=== PATIENT | male | born 1945 | race Caucasian/White ===

== ENCOUNTER 2017-10-07 19:51 | Emergency (ER) | payer MEDICARE, OTHER ==
[~2017-10-07] VITALS: Ht 185.4 cm; Wt 83.9 kg
[~2017-10-07 19:51] MED LIST: ASACOL HD800 M1 PO; ASPIR 8181 MG PO; CIPRO 500MG TA500 MG PO; KEPPRA 500 MG500 MG PO; LISINOPRIL 10MG10 MG PO; NAPROSYN250 M1 PO; NOMEDS XX; NORCO 325 MG-51 TAB PO; OMEPRAZOLE20 MG PO; OXAZEPAM 15MG C15 M1 PO; OXAZEPAM 15MG C15 MG PO; PHILLIPS' COLO1 EACH PO; PRAVASTATIN SOD10 MG PO; URSODIOL300 MG PO; VALIUM5 MG PO; ZYRTEC10 M2 PO
--- NOTE | 2017-10-07 20:11 | Emergency Room Report ---
See Addendum History of Present Illness Time Seen by 2009 Presenting Problem in Triage Pt arrived:Walked Presenting Problem:LEFT ARM NUMBNESS, HEART POUNDING Onset of symptoms date/time:10/07/17 or onset unknown for: Treatment Prior to Arrival: CLAIM ADMINISTRATOR Provided by: Sepsis Risk Assessment: Temp: 98.1 B/P: 147/83 MAP: 104 Pulse: 62 Resp: 18 Recent fever? N Clinical Suspician of Infection? N Mental Status: 1 - Regular (Normal Baseline) Sepsis Risk:Low Sepsis Risk Have you (or family members/close friends) recently traveled outside the [place]? N If Yes, where/when: Have you had exposure to infectious disease within the past month? N TB? Other? Specify: Source patient, RN notes reviewed, family, old records Exam Limitations no limitations Comment wm who has occ lt sided chest pain but none at this time with no def palpataion and no syncope- he also has occ lt upper ext tingling but no speech or focal neuro sx- no trauma or fever Cardiac Chest Pain Chest pain indicative of cardiac No Timing/Duration this evening Severity moderate ALLERGIES Coded Allergies: infliximab (From [facility]) (07/05/16) Home Medications Active Scripts LISINOPRIL (Lisinopril) 10 MG PO DAILY #30 TAB Ref 2 Prov: 09/14/13 Reported Medications CETIRIZINE HCL (Zyrtec) 10 MG PO DAILY Mesalamine (ASACOL HD 800MG (generic)) 800 MG PO DAILY URSODIOL (Ursodiol) 300 MG PO DAILY Omeprazole (Omeprazole 20MG) 20 MG PO DAILY Levothyroxine Sodium (Levothyroxine) 112 MCG NG DAILY History Medical History General CAD? No Angina: No SD: No Hypertension? Yes Hyperlipidemia? No CHF? No DVT? Yes PE? No COPD? No Asthma? No Anemia? No GERD? Yes Gastric ulcers? No GI Bleed? No Hernia? No Thyroid Problems? No Hypothyroidism? No CVA? Yes Seizures? Yes Diabetes? No Renal Insuffiency? No End Stage Renal Disease? No UTI? No Stones? No BPH? No GB Disease: No Nephritic Syndrome? No Asplenia? No Hepatitis? No Sickle Cell Disease? No Arthritis? No Migraines? No Cataracts? No Glaucoma? No MRSA? No HIV? No TB? No Anxiety? No Depression? No Cancer? No More? Yes Additional hx: CROHNS Immunization Hx DT/Tetanus Unknown Flu Refused Pneumonia Refuses Surgical Hx Previous Surgery?Y BACK SURG. ENDOSCOPY ERCP TONSILLECTOMY RIGHT ARM SURGERY THYROIDECTOMY Family History Family Hx Diabetes No CAD No Hypertension No Hyperlipidemia No Cancer No TB No Social History Smoking Hx Smoker: Former Smoker Tobacco: No Type Cigarettes Alcohol Alcohol: Yes Drugs none Review of Systems All Other Systems Reviewed and Negative Constitutional denies fever Eyes denies drainage ENT denies: ear pain, epistaxis, throat pain. Respiratory denies cough, denies shortness of breath, denies wheezing Cardiovascular denies syncope Gastrointestinal denies diarrhea, denies vomiting Genitourinary denies: dysuria, frequency, hesitancy, hematuria. Musculoskeletal denies back pain, denies joint pain, denies joint swelling, denies neck pain Skin denies rash Psychiatric/Neurological see HPI, denies headache, denies seizure, tingling Physical Exam Vital Signs Vital Signs Date Time Temp Pulse Resp B/P Pulse O2 O2 Flow FiO2 Ox Delivery Rate 10/07 2041 98.3 60 20 133/79 98 10/07 1956 98.1 62 18 147/83 98 - WBC >12,000 or <4,000 or 10% bands? 2 or more SIRS Criteria Met? B/P:133/79 MAP:104 Creatinine >2.0? UA output<0.5ml/kg/hr for 2 hrs? Platelet count >100,000? Lactate >2.0mmol/1? INR >1.2 or PTT > than 60 sec? Evidence of Organ Dysfunction? Provider documented clinical suspician of infection? N Sepsis Criteria Count: 0 Sepsis Risk: Low Sepsis Risk General Appearance no apparent distress Eye Exam - bilateral eye PERRL, bilateral eye EOMI Ear, Nose, Throat normal ENT inspection Neck supple, no def bruit Respiratory Status No: respiratory distress. Lung Sounds bilateral: lungs clear. Cardiovascular regular rate/rhythm, systolic murmur Peripheral Pulses Pulses normal Yes Gastrointestinal soft Extremities normal inspection, no calf tenderness Strength 4 Upper Ext (L), 4 Upper Ext (R), 4 Lower Ext (L), 4 Lower Ext (R) Neurologic alert, traffic controller cable II-XII nml as tested, no motor/sensory deficits Glascow Coma Scale Glascow Coma Scale Response Value EYE response: 4 Spontaneously 4 MOTOR response: 6 OBEYS 6 VERBAL response: 5 Oriented & Converses 5 Total 15 Reflexes Reflexes normal No Mental status normal mood/affect Skin intact Medical Decision Making LABS/Meds/Orders Pt receiving controlled substance in ED? No Results/Orders Laboratory Tests 10/07/172019: Sodium 135 L, Potassium 3.4 L, Chloride 100, Carbon Dioxide 27, BUN 12, Creatinine 0.9, Estimated Creat Clear 91, Estimated GFR (MDRD) 83, Glucose 106, Calcium 8.2 L, Total Bilirubin 0.3, AST 29, ALT 22, Alkaline Phosphatase 167 H , Creatine Kinase 119, CK-MB (CK-2) Rel Index 1.1, CK and CKMB Interp 1.3, Troponin I < 0.02, Total Protein 7.3, Albumin 3.2 L, Globulin 4.1 H, Albumin/ Globulin Ratio 0.8 L, WBC 4.2 L, RBC 4.08 L, Hgb 10.1 L, Hct 36.1 L, MCV 88.5, RDW 14.9, Plt Count 269, MPV 7.7, Gran % 62.8, Gran # 2.6, Lymphocytes % 24.2, Monocytes % 6.9, Eosinophils % 2.5, Basophils % 0.7, Lymphocytes # 1.0, Monocytes # 0.3, Eosinophils # 0.1, Basophils # 0.0, PUBS MCHC 27.7 L, MCH 24.5 L, Alcohols 124 H Current Medication Orders Sig/Jasmyn Start time Last Medication Dose Route Stop Time Status Admin Sodium Chloride 10 ML PRN PRN 10/07 2015 AC IV 10/08 2012 Sodium Chloride 10 ML PRN PRN 10/07 2015 AC IV 10/08 2012 Orders Procedure Date/time Status DIET-NOTHING BY MOUTH 10/[address] HEAD W/O CONTRAST 10/[address] SCAN REQ 10/07 2013 Complete IV SALINE LOCK 10/07 2013 Active URINALYSIS/COMPLETE 10/07 2013 Active DRUG ABUSE SCREEN (TRIAGE) 10/07 2013 Active COMPLETE METABOLIC PANEL 10/07 2013 Complete CBC WITH AUTO DIFF 10/07 2013 Complete CARDIAC ENZYMES 10/07 2013 Complete ALCOHOL 10/07 2013 Complete XRAY/CT/US XRAY/CT/US CT head CT interpretation by discussed w/radiologist Time results known: 2130 CT Results abnormal (see report) Departure Departure Time of Disposition 2126 Disposition DC Home or Self Care(routine) Clinical Impression Primary Impression: Tingling of left upper extremity Secondary Impressions: Alcohol intoxication Qualifiers: Complication of substance-induced condition: uncomplicated Qualified Code: F10.920 - Alcohol use, unspecified with intoxication, uncomplicated Condition STABLE Referrals [facility] (Family) Patient Instructions DI for Numbness/tingling Additional Instructions please call your dr at [facility] in am for follow up Discharge Counseling Counseled pt/family regarding diagnosis, test results, medications/RX, follow up needs ED Critical Care Critical Care No at 2132
--- OUTSIDE RECORDS SUMMARY | 2017-10-07 20:21 | External Medical Summary Rpt | CCD ---
Author Author [employer] Organization [employer] Address Unknown Phone Unavailable Purpose Continuity of Care Document - through 2016
--- OUTSIDE RECORDS SUMMARY | 2017-10-07 20:21 | External Medical Summary Rpt | CCD ---
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 [facility] n 434.91 Ischemic [place] stroke [facility] [id number] Alcohol [place] dependence [facility] [id number] Alcohol [place] withdrawal [facility] Allergies, Adverse Reactions, Alerts Type Drug Allergy Adverse Reaction to Substance Substance Reaction Severity Infliximab I-HIVES Intermediate Medications Na ND Rx Da Fi Fi Am Da Di Ph RX Ph St me C No te ll ll ou ys ag ar # ys at rm s nt no ma ic us Or Da si cy ia de te s n re d CL 00 12 0 No ON 90 -1 ID 45 1- Lo IN 65 20 ng E 66 13 er HC 1 L Ac 0. ti 1 ve MG TA BL ET Sa 63 12 1 No li 80 -1 ne 70 0- Lo 10 20 ng Fl 07 13 er us 5 h Ac 10 ti ML ve Sy ri ng e OX 00 11 0 No AZ 22 -0 EP 82 6- Lo AM 06 20 ng 91 13 er 15 0 Ac MG ti ve CA PS UL E Lo 63 11 1 No ra 73 -0 ze 90 5- Lo pa 15 20 ng m 51 13 er 1M 0 G Ac Ta ti bl ve et OX 00 11 1 No AZ 22 -0 EP 82 5- Lo AM 06 20 ng 91 13 er 15 0 Ac MG ti ve CA PS UL E Li 00 11 2 No si 17 -0 no 23 4- Lo pr 75 20 ng il 91 13 er 0 10 Ac MG ti ve Ta bl et Po 00 11 2 No ta 24 -0 ss 50 4- Lo iu 05 20 ng m 80 13 er Ch 1 lo Ac ri ti de ve 20 ME Q Ta bl e Lo 63 11 0 No ra 73 -0 ze 90 4- Lo pa 15 20 ng m 51 13 er 1M 0 G Ac Ta ti bl ve et LO 00 11 2 No VE 07 -0 NO 50 4- Lo X 62 20 ng 40 04 13 er 1 MG Ac /0 ti .4 ve ML SY RI NG E VA 00 11 0 No NC 40 -0 OM 96 3- Lo YC 53 20 ng IN 30 13 er 1 1 Ac GM ti ve AL SO 00 11 0 No DI 40 -0 UM 97 3- Lo 98 20 ng CH 30 13 er LO 2 RI Ac DE ti ve 0. 9% SO ALVINO TI ON LE 25 11 1 No VO 02 -0 FL 10 3- Lo OX 13 20 ng AC 28 13 er IN 3 Ac 75 ti 0 ve MG /1 50 ML -D 5W Lo 63 11 1 No ra 73 -0 ze 90 3- Lo pa 15 20 ng m 51 13 er 1M 0 G Ac Ta ti bl ve et M. 61 11 2 No V. 70 -0 I. 30 2- Lo 42 20 ng AD 28 13 er UL 2 T Ac ti AL ve TH 63 11 2 No IA 32 -0 IN 30 2- Lo NE 01 20 ng 30 13 er 20 2 0 Ac MG ti /2 ve ML AL MA 00 11 2 No GN 51 -0 ES 72 2- Lo IU 60 20 ng M 22 13 er BANDA 5 LF Ac AT ti E ve 50 % AL LA [address] 40 -0 AT 97 2- Lo ED 95 20 ng 30 13 er RI 9 NG Ac ER ti S ve IN JE CT IO N LE 25 11 1 No VO 02 -0 FL 10 2- Lo OX 13 20 ng AC 28 13 er IN 3 Ac 75 ti 0 ve MG /1 50 ML -D 5W VA 00 11 1 No NC 40 -0 OM 96 2- Lo YC 53 20 ng IN 30 13 er 1 1 Ac GM ti ve AL SO 00 11 1 No DI 40 -0 UM 97 2- Lo 98 20 ng CH 30 13 er LO 2 RI Ac DE ti ve 0. 9% SO ALVINO TI ON AC 45 11 4 No ET 80 -0 AM 20 2- Lo IN 73 20 ng OP 03 13 er HE 2 N Ac 65 ti 0 ve MG BANDA PP OS Ib 62 11 0 No up 58 -0 ro 40 2- Lo fe 74 20 ng n 60 13 er 40 1 0M Ac G ti Ta ve bl et [place] 00 11 4 No lo 06 -0 pe 90 2- Lo ri 11 20 ng do 30 13 er l [address] ti at ve e 5M G/ Ml Vi a LO 00 11 0 No RA 64 -0 ZE 16 2- Lo PA 04 20 ng M 82 13 er 2 5 MG Ac /M ti L ve AL RI 64 11 4 No SA 98 -0 QU 00 2- Lo AD 14 20 ng 70 13 er CA 3 PS Ac UL ti ES ve Sa 63 11 4 No li 80 -0 ne 70 2- Lo 10 20 ng Fl 07 13 er us 5 h Ac 10 ti ML ve Sy ri ng e 63 11 4 No PI 73 -0 RI 90 2- Lo N 43 20 ng 81 40 13 er 1 MG Ac ti CH ve EW AB LE TA BL ET LI 68 11 2 No SI 18 -0 NO 00 2- Lo SD 51 20 ng IL 80 13 er -H 1 CT Ac Z ti 10 ve -1 2. 5 MG TA B IN 11 4 No SC -0 EL 2- Lo LA 20 ng NE 13 er OU S Ac ti ve SO 00 11 3 No DI 40 -0 UM 97 1- Lo 98 20 ng CH 30 13 er LO 9 RI Ac DE ti ve 0. 9% SO ALVINO TI ON MA 00 11 5 No PA 90 -0 P 41 1- Lo 32 98 20 ng 5 26 13 er MG 1 Ac TA ti BL ve ET SD 00 11 5 No OM 64 -0 ET 11 1- Lo DALTON 49 20 ng ZI 53 13 er NE 5 Ac 25 ti ve MG /M L AM PU L Th 00 11 2 No ia 53 -0 mi 65 1- Lo ne 68 20 ng 00 13 er 10 1 0M Ac G ti Ta ve bl et FO 62 11 2 No LI 58 -0 C 40 1- Lo AC 89 20 ng ID 70 13 er 1 1 Ac MG ti ve TA BL ET TA 00 11 5 No B- 90 -0 A- 40 1- Lo 53 20 ng TE 06 13 er 1 TA Ac BL ti ET ve Lo 63 11 1 No ra 73 -0 ze 90 1- Lo pa 15 20 ng m 51 13 er 1M 0 G Ac Ta ti bl ve et GE 11 1 No NE -0 RA 1- Lo L 20 ng PH 13 er AR MA Ac CY ti ve RE QU ES T Dalton 00 11 5 No lo 06 -0 pe 90 1- Lo ri 11 20 ng do 30 13 er l [address] ti at ve e 5M G/ Ml Vi a Vital Signs 12-11-2013 00:06 Name Value Interpretat Reference Comment ion Range Body 98.6 [degF] Temperature BP 99 mm[Hg] Diastolic BP Systolic 148 mm[Hg] Heart 58 /min Rate/Pulse O2% 95 % Respiratory 18 /min Rate 12-10-2013 22:27 Name Value Interpretat Reference Comment ion Range BP 87 mm[Hg] Diastolic BP Systolic 135 mm[Hg] Heart 60 /min Rate/Pulse O2% 97 % Respiratory 20 /min Rate 10-19-2013 01:31 Name Value Interpretat Reference Comment ion Range BP 100 mm[Hg] Diastolic BP Systolic 169 mm[Hg] Heart 74 /min Rate/Pulse O2% 98 % Respiratory 16 /min Rate 10-18-2013 22:21 Name Value Interpretat Reference Comment ion Range BP 101 mm[Hg] Diastolic BP Systolic 147 mm[Hg] Heart 64 /min Rate/Pulse O2% 94 % Respiratory 20 /min Rate 09-14-2013 16:00 Name Value Interpretat Reference Comment ion Range Body 98.6 [degF] Temperature BP 78 mm[Hg] Diastolic BP Systolic 132 mm[Hg] Heart 68 /min Rate/Pulse Respiratory 16 /min Rate 09-14-2013 15:49 Name Value Interpretat Reference Comment ion Range O2% 96 % 09-09-2013 16:01 Name Value Interpretat Reference Comment ion Range Height 185.42 cm Weight 82.555 kg Measured 09-09-2013 13:24 Name Value Interpretat Reference Comment ion Range Body 99.1 [degF] Temperature BP 103 mm[Hg] Diastolic BP Systolic 185 mm[Hg] Heart 76 /min Rate/Pulse O2% 98 % Respiratory 20 /min Rate Weight 0 [oz_av] Measured Results Labs Lab Lab Date Result Refere Interp Status Commen Order Detail nces retati t Range on COMPREHENSIVE METABOLIC PANEL (12-10-2013 21:25) Glucose 90 74-106 complet 014 mg/dL ed Bld-mCn 21:25 c BUN 11 7-18 complet Bld-mCn 014 mg/dL ed c 21:25 Creat 0.8 0.8-1.3 complet SerPl-m 014 mg/dL ed Cnc 21:25 Creat 103 50-200 complet Cl 014 ML/MIN ed predict 21:25 ed SerPl C-G-vRa te GFR/BSA 96 Greater complet .pred 014 ML/MIN than ed SerPl 21:25 60 Schwart z-vRate Sodium 140 136-145 complet SerPl-s 014 mmoL/L ed Cnc 21:25 Potassi 3.4 3.5-5.1 complet um 014 mmoL/L ed SerPl-s 21:25 Cnc Chlorid 98 98-107 complet e 014 mmoL/L ed SerPl-s 21:25 Cnc CO2 33 21.0-32 complet SerPl-s 014 mmoL/L .0 ed Cnc 21:25 Calcium 12-10- 8.9 8.5-10. complet 014 mg/dL 1 ed SerPl-m 21:25 Cnc Prot 8.4 6.4-8.2 complet SerPl-m 014 gm/dL ed Cnc 21:25 Albumin 12-10-2 4.1 3.4-5.0 complet 014 gm/dL ed SerPl-m 21:25 Cnc Globuli 12-10- 4.3 1.3-3.2 complet n 014 gm/dL ed Ser-mCn 21:25 c Albumin 12-10- 1.0 UNK 1.1-1.8 complet /Glob 014 ed SerPl-m 21:25 Rto Bilirub 0.6 0.2-1.0 complet 014 mg/dL ed SerPl-m 21:25 Cnc AST 12-10-2 102 U/L 15-37 complet SerPl-c 014 ed Cnc 21:25 ALT 12-10-2 116 U/L 12-78 complet SerPl-c 014 ed Cnc 21:25 ALP 12-10- 635 U/L 50-136 complet SerPl-c 014 ed Cnc 21:25 Ethanol Bld-mCnc (12-10-2013 21:25) Ethanol 12-10- 52 0-99 complet 014 mg/dL ed Bld-mCn 21:25 c CBC with AUTO DIFF (12-10-2013 21:25) WBC # 02-01-2 4.6 4.8-10. complet Bld 014 K/MM3 8 ed Auto 21:25 RBC # 02-01-2 4.66 4.6-6.2 complet Bld 014 M/mm3 ed Auto 21:25 Hgb 02-01-2 13.8 14.1-18 complet Bld-mCn 014 g/dL .0 ed c 21:25 Hct Fr 02-01-2 42.6 % 42.0-52 complet Bld 014 .0 ed 21:25 MCV RBC 02-01-2 91.5 fl 82.2-97 complet 014 .8 ed 21:25 MCH RBC 02-01-2 29.7 pg 27-31.2 complet Qn 014 ed Auto 21:25 MEAN 02-01-2 32.4 31.8-35 complet CORPUSC 014 g/dl .4 ed ULAR 21:25 HGB CONC RDW RBC 02-01-2 16.8 % 11.5-17 complet Auto 014 .5 ed 21:25 Platele 02-01-2 184 142-424 complet t Bld 014 K/mm3 ed Ql 21:25 Manual MEAN 0201-2 7.3 fl 7.4-10. complet PLATELE 014 4 ed T 21:25 VOLUME Granulo 02-01-2 46.3 % 37.0-80 complet cytes 014 .0 ed Fr Bld 21:25 Auto LYMPH % 02-01-2 42.5 % 10-50 complet 014 ed 21:25 Monocyt 02-01-2 6.3 % 1.7-9.3 complet es Fr 014 ed Bld 21:25 Auto Eosinop 02-01-2 4.3 % 0.1-12. complet hil Fr 014 0 ed Bld 21:25 Auto Basophi 02-01-2 0.6 % 0.1-2.0 complet ls Fr 014 ed Bld 21:25 Auto Granulo 02-01-2 2.1 1.3-8.0 complet cytes # 014 K/mm3 ed Bld 21:25 Auto Lymphoc 02-01-2 1.9 0.7-4.5 complet ytes Fr 014 K/mm3 ed Bld 21:25 Auto Monocyt 02-01-2 0.3 0.1-1.0 complet es # 014 K/mm3 ed Bld 21:25 Auto Eosinop 02-01-2 0.2 0.0-0.4 complet hil # 014 K/mm3 ed Bld 21:25 Auto Basophi 02-01-2 0.0 0-0.2 complet ls # 014 K/MM3 ed Bld 21:25 Auto URINALYSIS/COMPLETE (10-18-2013 21:50) URINE 12-10-2 YELLOW YELLOW complet COLOR 013 ed 21:50 URINE 12-10-2 CLEAR CLEAR complet APPEARA 013 ed NCE 21:50 URINE 12-10-2 NEGATIV NEG complet GLUCOSE 013 E ed - 21:50 DIPSTIC K URINE 12-10-2 NEGATIV NEG complet BILIRUB 013 E ed IN - 21:50 DIPSTIC K URINE 12-10-2 NEGATIV NEG complet KETONE 013 E mg/dL ed 21:50 URINE 12-10-2 Less 1.005-1 complet SPECIFI 013 than or .030 ed C 21:50 equal GRAVITY to 1.005 URINE 12-10-2 NEGATIV NEG complet BLOOD 013 E ed 21:50 URINE 12-10-2 6.0 UNK 5.0-8.5 complet PH 013 ed 21:50 URINE 12-10-2 NEGATIV NEG complet PROTEIN 013 E mg/dL ed - 21:50 DIPSTIC K URINE 12-10-2 0.2 NEG complet UROBILI 013 E.U./dL ed NOGEN - 21:50 DIPSTIC K URINE 12-10-2 NEGATIV NEG complet NITRATE 013 E ed - 21:50 DIPSTIC K URINE 12-10-2 NEGATIV NEG complet LEUK 013 E ed ESTERAS 21:50 E URINE 12-10-2 OCC O complet WBC 013 wbc/hpf ed 21:50 URINE 12-10-2 TRACE O complet BACTERI 013 ed A 21:50 COMPREHENSIVE METABOLIC PANEL (10-18-2013 21:20) Glucose 12-10-2 86 74-106 complet 013 mg/dL ed Bld-mCn 21:20 c BUN 12-10-2 13 7-18 complet Bld-mCn 013 mg/dL ed c 21:20 Creat 12-10-2 1.0 0.8-1.3 complet SerPl-m 013 mg/dL ed Cnc 21:20 Creat 12-10-2 84 50-200 complet Cl 013 ML/MIN ed predict 21:20 ed SerPl C-G-vRa te GFR/BSA 75 Greater complet .pred 013 ML/MIN than ed SerPl 21:20 60 Schwart z-vRate Sodium 137 136-145 complet SerPl-s 013 mmoL/L ed Cnc 21:20 Potassi 3.5 3.5-5.1 complet um 013 mmoL/L ed SerPl-s 21:20 Cnc Chlorid 100 98-107 complet e 013 mmoL/L ed SerPl-s 21:20 Cnc CO2 31 21.0-32 complet SerPl-s 013 mmoL/L .0 ed Cnc 21:20 Calcium 8.7 8.5-10. complet 013 mg/dL 1 ed SerPl-m 21:20 Cnc Prot 8.1 6.4-8.2 complet SerPl-m 013 gm/dL ed Cnc 21:20 Albumin 3.8 3.4-5.0 complet 013 gm/dL ed SerPl-m 21:20 Cnc Globuli 4.3 1.3-3.2 complet n 013 gm/dL ed Ser-mCn 21:20 c Albumin 0.9 UNK 1.1-1.8 complet /Glob 013 ed SerPl-m 21:20 Rto Bilirub 0.7 0.2-1.0 complet 013 mg/dL ed SerPl-m 21:20 Cnc AST 41 U/L 15-37 complet SerPl-c 013 ed Cnc 21:20 ALT 69 U/L 30-65 complet SerPl-c 013 ed Cnc 21:20 ALP 508 U/L 50-136 complet SerPl-c 013 ed Cnc 21:20 Ethanol Bld-mCnc (10-18-2013 21:20) Ethanol 99 0-99 complet 013 mg/dL ed Bld-mCn 21:20 c PROTIME/INR (10-18-2013 21:20) PROTHRO 12-10-2 10.9 9.9-11. complet MBIN 013 SECONDS 6 ed TIME 21:20 INR Bld 12-10-2 1.02 0.9-1.1 complet 013 UNK ed 21:20 CBC with AUTO DIFF (10-18-2013 21:20) WBC # 12-10-2 3.9 4.8-10. complet Bld 013 K/MM3 8 ed Auto 21:20 RBC # 12-10-2 5.45 4.6-6.2 complet Bld 013 M/mm3 ed Auto 21:20 Hgb 12-10-2 15.2 14.1-18 complet Bld-mCn 013 g/dL .0 ed c 21:20 Hct Fr 12-10-2 48.0 % 42.0-52 complet Bld 013 .0 ed 21:20 MCV RBC 12-10-2 88.1 fl 82.2-97 complet 013 .8 ed 21:20 MCH RBC 12-10-2 27.8 pg 27-31.2 complet Qn 013 ed Auto 21:20 MEAN 12-10-2 31.6 31.8-35 complet CORPUSC 013 g/dl .4 ed ULAR 21:20 HGB CONC RDW RBC 12-10-2 17.6 % 11.5-17 complet Auto 013 .5 ed 21:20 Platele 12-10-2 164 142-424 complet t Bld 013 K/mm3 ed Ql 21:20 Manual MEAN 12-10-2 6.9 fl 7.4-10. complet PLATELE 013 4 ed T 21:20 VOLUME Granulo 12-10-2 51.1 % 37.0-80 complet cytes 013 .0 ed Fr Bld 21:20 Auto LYMPH % 12-10-2 35.6 % 10-50 complet 013 ed 21:20 Monocyt 12-10-2 6.8 % 1.7-9.3 complet es Fr 013 ed Bld 21:20 Auto Eosinop 12-10-2 6.0 % 0.1-12. complet hil Fr 013 0 ed Bld 21:20 Auto Basophi 12-10-2 0.5 % 0.1-2.0 complet ls Fr 013 ed Bld 21:20 Auto Granulo 12-10-2 2.0 1.3-8.0 complet cytes # 013 K/mm3 ed Bld 21:20 Auto Lymphoc 12-10-2 1.4 0.7-4.5 complet ytes Fr 013 K/mm3 ed Bld 21:20 Auto Monocyt 10-2 0.3 0.1-1.0 complet es # 013 K/mm3 ed Bld 21:20 Auto Eosinop 10-18-2 0.2 0.0-0.4 complet hil # 013 K/mm3 ed Bld 21:20 Auto Basophi 10-18-2 0.0 0-0.2 complet ls # 013 K/MM3 ed Bld 21:20 Auto COMPREHENSIVE METABOLIC PANEL (09-13-2013 06:30) Glucose 88 74-106 complet 013 mg/dL ed Bld-mCn 06:30 c BUN 8 mg/dL 7-18 complet Bld-mCn 013 ed c 06:30 Creat 0.6 0.8-1.3 complet SerPl-m 013 mg/dL ed Cnc 06:30 ESTIMAT 141 50-200 complet ED 013 ML/MIN ed CREATIN 06:30 INE CLEARAN CE GFR 135 Greater complet (ESTIMA 013 ML/MIN than ed LUDY) 06:30 60 Sodium 139 136-145 complet SerPl-s 013 mmoL/L ed Cnc 06:30 Potassi 3.5 3.5-5.1 complet um 013 mmoL/L ed SerPl-s 06:30 Cnc Chlorid 103 98-107 complet e 013 mmoL/L ed SerPl-s 06:30 Cnc CO2 31 21.0-32 complet SerPl-s 013 mmoL/L .0 ed Cnc 06:30 Calcium 09-13- 8.3 8.5-10. complet 013 mg/dL 1 ed SerPl-m 06:30 Cnc Prot 7.1 6.4-8.2 complet SerPl-m 013 gm/dL ed Cnc 06:30 Albumin 09-13- 3.1 3.4-5.0 complet 013 gm/dL ed SerPl-m 06:30 Cnc Globuli 4.0 1.3-3.2 complet n 013 gm/dL ed Ser-mCn 06:30 c Albumin 11-05-2 0.8 UNK 1.1-1.8 complet /Glob 013 ed SerPl-m 06:30 Rto Bilirub 11-05-2 1.2 0.2-1.0 complet 013 mg/dL ed SerPl-m 06:30 Cnc AST 11-05-2 44 U/L 15-37 complet SerPl-c 013 ed Cnc 06:30 ALT 11-05-2 57 U/L 30-65 complet SerPl-c 013 ed Cnc 06:30 ALP 11-05-2 323 U/L 50-136 complet SerPl-c 013 ed Cnc 06:30 CBC with AUTO DIFF (09-13-2013 06:30) WBC # 11-05-2 4.5 4.8-10. complet Bld 013 K/mm3 8 ed Auto 06:30 RBC # 11-05-2 5.62 4.6-6.2 complet Bld 013 M/mm3 ed Auto 06:30 Hgb 11-05-2 14.2 14.1-18 complet Bld-mCn 013 g/dL .0 ed c 06:30 Hct Fr 11-05-2 46.5 % 42.0-52 complet Bld 013 .0 ed 06:30 MCV RBC 11-05-2 82.7 fL 82.2-97 complet 013 .8 ed 06:30 MCH RBC 11-05-2 25.3 pg 27-31.2 complet Qn 013 ed Auto 06:30 MEAN 11-05-2 30.5 31.8-35 complet CORPUSC 013 g/dl .4 ed ULAR 06:30 HGB CONC RDW RBC 11-05-2 16.3 % 11.5-17 complet Auto 013 .5 ed 06:30 Platele 11-05-2 164 142-424 complet t Bld 013 K/mm3 ed Ql 06:30 Manual Granulo 11-05-2 68.9 % 37.0-80 complet cytes 013 .0 ed Fr Bld 06:30 Auto LYMPH % 11-05-2 25.8 % 10-50 complet 013 ed 06:30 Monocyt 11-05-2 5.3 % 1.7-9.3 complet es Fr 013 ed Bld 06:30 Auto Granulo 11-05-2 3.1 1.3-8.0 complet cytes # 013 K/mm3 ed Bld 06:30 Auto Lymphoc 09-13-2 1.2 0.7-4.5 complet ytes Fr 013 K/mm3 ed Bld 06:30 Auto Monocyt 09-13-2 0.2 0.1-1.0 complet es # 013 K/mm3 ed Bld 06:30 Auto Vancomycin Trough SerPl-mCnc (09-12-2013 08:45) Vancomy 2 7.6 5.0-10. complet marnie 013 mcg/mL 0 ed Trough 08:45 SerPl-m [facility] COMPREHENSIVE METABOLIC PANEL (09-12-2013 06:10) Glucose 113 74-106 complet 013 mg/dL ed Bld-mCn 06:10 c BUN 8 mg/dL 7-18 complet Bld-mCn 013 ed c 06:10 Creat 0.7 0.8-1.3 complet SerPl-m 013 mg/dL ed Cnc 06:10 ESTIMAT 121 50-200 complet ED 013 ML/MIN ed CREATIN 06:10 INE CLEARAN CE GFR 113 Greater complet (ESTIMA 013 ML/MIN than ed LUDY) 06:10 60 Sodium 136 136-145 complet SerPl-s 013 mmoL/L ed Cnc 06:10 Potassi 3.0 3.5-5.1 complet um 013 mmoL/L ed SerPl-s 06:10 Cnc Chlorid 100 98-107 complet e 013 mmoL/L ed SerPl-s 06:10 Cnc CO2 31 21.0-32 complet SerPl-s 013 mmoL/L .0 ed Cnc 06:10 Calcium 7.8 8.5-10. complet 013 mg/dL 1 ed SerPl-m 06:10 Cnc Prot 09-12-2 6.6 6.4-8.2 complet SerPl-m 013 gm/dL ed Cnc 06:10 Albumin 09-12-2 2.7 3.4-5.0 complet 013 gm/dL ed SerPl-m 06:10 Cnc GLOBULI 3.9 1.3-3.2 complet N 013 gm/dL ed 06:10 ALB/ALEYDA 11-04-2 0.7 UNK 1.1-1.8 complet B RATIO 013 ed 06:10 Bilirub 11-04-2 1.0 0.2-1.0 complet 013 mg/dL ed SerPl-m 06:10 Cnc AST 09-12-2 38 U/L 15-37 complet SerPl-c 013 ed Cnc 06:10 ALT 1104-2 48 U/L 30-65 complet SerPl-c 013 ed Cnc 06:10 ALP 1104-2 305 U/L 50-136 complet SerPl-c 013 ed Cnc 06:10 CBC with AUTO DIFF (09-12-2013 06:10) WBC # 11-04-2 4.9 4.8-10. complet Bld 013 K/MM3 8 ed Auto 06:10 RBC # 11-04-2 5.59 4.6-6.2 complet Bld 013 M/mm3 ed Auto 06:10 Hgb -04-2 13.9 14.1-18 complet Bld-mCn 013 g/dL .0 ed c 06:10 Hct Fr 09-12-2 46.1 % 42.0-52 complet Bld 013 .0 ed 06:10 MCV RBC 11--2 82.5 fl 82.2-97 complet 013 .8 ed 06:10 MCH RBC --2 24.9 pg 27-31.2 complet Qn 013 ed Auto 06:10 MEAN -04-2 30.2 31.8-35 complet CORPUSC 013 g/dl .4 ed ULAR 06:10 HGB CONC RDW RBC -04-2 17.7 % 11.5-17 complet Auto 013 .5 ed 06:10 Platele -04-2 158 142-424 complet t Bld 013 K/mm3 ed Ql 06:10 Manual Granulo 11-04-2 79.4 % 37.0-80 complet cytes 013 .0 ed Fr Bld 06:10 Auto LYMPH % 11-04-2 17.7 % 10-50 complet 013 ed 06:10 Monocyt 11-04-2 2.9 % 1.7-9.3 complet es Fr 013 ed Bld 06:10 Auto Granulo 11-04-2 3.9 1.3-8.0 complet cytes # 013 K/mm3 ed Bld 06:10 Auto Lymphoc 11-04-2 0.9 0.7-4.5 complet ytes Fr 013 K/mm3 ed Bld 06:10 Auto Monocyt 0.1 0.1-1.0 complet es # 013 K/mm3 ed Bld 06:10 Auto COMPREHENSIVE METABOLIC PANEL (09-11-2013 06:15) Glucose 95 74-106 complet 013 mg/dL ed Bld-mCn 06:15 c BUN 11 7-18 complet Bld-mCn 013 mg/dL ed c 06:15 Creat 0.5 0.8-1.3 complet SerPl-m 013 mg/dL ed Cnc 06:15 ESTIMAT 170 50-200 complet ED 013 ML/MIN ed CREATIN 06:15 INE CLEARAN CE GFR 166 Greater complet (ESTIMA 013 ML/MIN than ed LUDY) 06:15 60 Sodium 140 136-145 complet SerPl-s 013 mmoL/L ed Cnc 06:15 Potassi 4.3 3.5-5.1 complet um 013 mmoL/L ed SerPl-s 06:15 Cnc Chlorid 95 98-107 complet e 013 mmoL/L ed SerPl-s 06:15 Cnc CO2 27 21.0-32 complet SerPl-s 013 mmoL/L .0 ed Cnc 06:15 Calcium 8.0 8.5-10. complet 013 mg/dL 1 ed SerPl-m 06:15 Cnc Prot 7.5 6.4-8.2 complet SerPl-m 013 gm/dL ed Cnc 06:15 Albumin 3.2 3.4-5.0 complet 013 gm/dL ed SerPl-m 06:15 Cnc Globuli 4.3 1.3-3.2 complet n 013 gm/dL ed Ser-mCn 06:15 c Albumin 0.7 UNK 1.1-1.8 complet /Glob 013 ed SerPl-m 06:15 Rto Bilirub 1.9 0.2-1.0 complet 013 mg/dL ed SerPl-m 06:15 Cnc AST 11-03-2 58 U/L 15-37 complet SerPl-c 013 ed Cnc 06:15 ALT 09-11-2 53 U/L 30-65 complet SerPl-c 013 ed Cnc 06:15 ALP 09-11-2 374 U/L 50-136 complet SerPl-c 013 ed Cnc 06:15 CBC with AUTO DIFF (09-11-2013 06:15) WBC # 11-03-2 5.4 4.8-10. complet Bld 013 K/MM3 8 ed Auto 06:15 RBC # 11-03-2 6.27 4.6-6.2 complet Bld 013 M/mm3 ed Auto 06:15 Hgb --2 16.3 14.1-18 complet Bld-mCn 013 g/dL .0 ed c 06:15 Hct Fr 09-11-2 53.1 % 42.0-52 complet Bld 013 .0 ed 06:15 MCV RBC 09-11-2 84.7 fl 82.2-97 complet 013 .8 ed 06:15 MCH RBC 09-11-2 25.9 pg 27-31.2 complet Qn 013 ed Auto 06:15 MEAN 09-11-2 30.6 31.8-35 complet CORPUSC 013 g/dl .4 ed ULAR 06:15 HGB CONC RDW RBC 09-11-2 16.3 % 11.5-17 complet Auto 013 .5 ed 06:15 Platele --2 149 142-424 complet t Bld 013 K/mm3 ed Ql 06:15 Manual MEAN 09-11-2 8.1 fl 7.4-10. complet PLATELE 013 4 ed T 06:15 VOLUME Granulo 09-11-2 68.2 % 37.0-80 complet cytes 013 .0 ed Fr Bld 06:15 Auto LYMPH % --2 21.1 % 10-50 complet 013 ed 06:15 Monocyt 11--2 8.7 % 1.7-9.3 complet es Fr 013 ed Bld 06:15 Auto Eosinop --2 1.7 % 0.1-12. complet hil Fr 013 0 ed Bld 06:15 Auto Basophi 09-11-2 0.2 % 0.1-2.0 complet ls Fr 013 ed Bld 06:15 Auto Granulo 2 3.7 1.3-8.0 complet cytes # 013 K/mm3 ed Bld 06:15 Auto Lymphoc 09-11-2 1.1 0.7-4.5 complet ytes Fr 013 K/mm3 ed Bld 06:15 Auto Monocyt 09-11-2 0.5 0.1-1.0 complet es # 013 K/mm3 ed Bld 06:15 Auto Eosinop 09-11-2 0.1 0.0-0.4 complet hil # 013 K/mm3 ed Bld 06:15 Auto Basophi 09-11-2 0.0 0-0.2 complet ls # 013 K/MM3 ed Bld 06:15 Auto LIPID PROFILE (09-10-2013 19:45) Cholest 169 Less complet 013 mg/dL than ed SerPl-m 19:45 200 Cnc HDLc 89.0 40-60 complet SerPl-m 013 MG/DL ed Cnc 19:45 LDLc 2 66.2 0-130 complet SerPl 013 mg/dL ed Calc-mC 19:45 nc VLDL 2 13.8 0-40 complet CHOLEST 013 UNK ed MONSERRAT 19:45 Trigl 69 30-200 complet SerPl-m 013 mg/dL ed Cnc 19:45 COMPREHENSIVE METABOLIC PANEL (09-10-2013 10:30) Glucose 80 74-106 complet 013 mg/dL ed Bld-mCn 10:30 c BUN 11 7-18 complet Bld-mCn 013 mg/dL ed c 10:30 Creat 2 0.5 0.8-1.3 complet SerPl-m 013 mg/dL ed Cnc 10:30 ESTIMAT 170 50-200 complet ED 013 ML/MIN ed CREATIN 10:30 INE CLEARAN CE GFR 166 Greater complet (ESTIMA 013 ML/MIN than ed LUDY) 10:30 60 Sodium 133 136-145 complet SerPl-s 013 mmoL/L ed Cnc 10:30 Potassi 4.1 3.5-5.1 complet um 013 mmoL/L ed SerPl-s 10:30 Cnc Chlorid 11-02-2 97 98-107 complet e 013 mmoL/L ed SerPl-s 10:30 Cnc CO2 11-02-2 21 21.0-32 complet SerPl-s 013 mmoL/L .0 ed Cnc 10:30 Calcium 11-02-2 8.2 8.5-10. complet 013 mg/dL 1 ed SerPl-m 10:30 Cnc Prot 11-02-2 7.9 6.4-8.2 complet SerPl-m 013 gm/dL ed Cnc 10:30 Albumin 11-02-2 3.5 3.4-5.0 complet 013 gm/dL ed SerPl-m 10:30 Cnc Globuli 11--2 4.4 1.3-3.2 complet n 013 gm/dL ed Ser-mCn 10:30 c Albumin 11--2 0.8 UNK 1.1-1.8 complet /Glob 013 ed SerPl-m 10:30 Rto Bilirub 09-10-2 1.4 0.2-1.0 complet 013 mg/dL ed SerPl-m 10:30 Cnc AST 11-02-2 57 U/L 15-37 complet SerPl-c 013 ed Cnc 10:30 ALT 11-02-2 55 U/L 30-65 complet SerPl-c 013 ed Cnc 10:30 ALP 11-02-2 443 U/L 50-136 complet SerPl-c 013 ed Cnc 10:30 CBC with AUTO DIFF (09-10-2013 10:30) WBC # 11-02-2 9.7 4.8-10. complet Bld 013 K/MM3 8 ed Auto 10:30 RBC # 11-02-2 6.40 4.6-6.2 complet Bld 013 M/mm3 ed Auto 10:30 Hgb 11-02-2 16.6 14.1-18 complet Bld-mCn 013 g/dL .0 ed c 10:30 Hct Fr --2 52.6 % 42.0-52 complet Bld 013 .0 ed 10:30 MCV RBC 11-02-2 82.2 fl 82.2-97 complet 013 .8 ed 10:30 MCH RBC 11-02-2 25.9 pg 27-31.2 complet Qn 013 ed Auto 10:30 MEAN 11-02-2 31.6 31.8-35 complet CORPUSC 013 g/dl .4 ed ULAR 10:30 HGB CONC RDW RBC 17.8 % 11.5-17 complet Auto 013 .5 ed 10:30 Platele 147 142-424 complet t Bld 013 K/mm3 ed Ql 10:30 Manual Granulo 79.7 % 37.0-80 complet cytes 013 .0 ed Fr Bld 10:30 Auto LYMPH % 09-10-2 15.8 % 10-50 complet 013 ed 10:30 Monocyt 09-10-2 4.5 % 1.7-9.3 complet es Fr 013 ed Bld 10:30 Auto Granulo 7.7 1.3-8.0 complet cytes # 013 K/mm3 ed Bld 10:30 Auto Lymphoc 1.5 0.7-4.5 complet ytes Fr 013 K/mm3 ed Bld 10:30 Auto Monocyt 0.4 0.1-1.0 complet es # 013 K/mm3 ed Bld 10:30 Auto COMPREHENSIVE METABOLIC PANEL (09-09-2013 14:06) Glucose 89 74-106 complet 013 mg/dL ed Bld-mCn 14:06 c BUN 14 7-18 complet Bld-mCn 013 mg/dL ed c 14:06 Creat 0.8 0.8-1.3 complet SerPl-m 013 mg/dL ed Cnc 14:06 ESTIMAT 106 50-200 complet ED 013 ML/MIN ed CREATIN 14:06 INE CLEARAN CE GFR 97 Greater complet (ESTIMA 013 ML/MIN than ed LUDY) 14:06 60 Sodium 139 136-145 complet SerPl-s 013 mmoL/L ed Cnc 14:06 Potassi 4.0 3.5-5.1 complet um 013 mmoL/L ed SerPl-s 14:06 Cnc Chlorid 102 98-107 complet e 013 mmoL/L ed SerPl-s 14:06 Cnc CO2 28 21.0-32 complet SerPl-s 013 mmoL/L .0 ed Cnc 14:06 Calcium 9.0 8.5-10. complet 013 mg/dL 1 ed SerPl-m 14:06 Cnc Prot 8.0 6.4-8.2 complet SerPl-m 013 gm/dL ed Cnc 14:06 Albumin 3.6 3.4-5.0 complet 013 gm/dL ed SerPl-m 14:06 Cnc Globuli 4.4 1.3-3.2 complet n 013 gm/dL ed Ser-mCn 14:06 c Albumin 0.8 UNK 1.1-1.8 complet /Glob 013 ed SerPl-m 14:06 Rto Bilirub 1.0 0.2-1.0 complet 013 mg/dL ed SerPl-m 14:06 Cnc AST 44 U/L 15-37 complet SerPl-c 013 ed Cnc 14:06 ALT 60 U/L 30-65 complet SerPl-c 013 ed Cnc 14:06 ALP 464 U/L 50-136 complet SerPl-c 013 ed Cnc 14:06 PROTIME/INR (09-09-2013 14:06) PROTHRO 12.7 9.9-11. complet MBIN 013 SECONDS 6 ed TIME 14:06 INR Bld 1.18 0.9-1.1 complet 013 UNK ed 14:06 CBC with AUTO DIFF (09-09-2013 14:06) WBC # 09-09- 4.4 4.8-10. complet Bld 013 K/MM3 8 ed Auto 14:06 RBC # 5.99 4.6-6.2 complet Bld 013 M/mm3 ed Auto 14:06 Hgb 15.4 14.1-18 complet Bld-mCn 013 g/dL .0 ed c 14:06 Hct Fr 51.3 % 42.0-52 complet Bld 013 .0 ed 14:06 MCV RBC 85.7 fl 82.2-97 complet 013 .8 ed 14:06 MCH RBC 25.7 pg 27-31.2 complet Qn 013 ed Auto 14:06 MEAN 30.0 31.8-35 complet CORPUSC 013 g/dl .4 ed ULAR 14:06 HGB CONC RDW RBC 16.3 % 11.5-17 complet Auto 013 .5 ed 14:06 Platele 162 142-424 complet t Bld 013 K/mm3 ed Ql 14:06 Manual MEAN 7.3 fl 7.4-10. complet PLATELE 013 4 ed T 14:06 VOLUME Granulo 61.4 % 37.0-80 complet cytes 013 .0 ed Fr Bld 14:06 Auto LYMPH % 27.7 % 10-50 complet 013 ed 14:06 Monocyt 7.5 % 1.7-9.3 complet es Fr 013 ed Bld 14:06 Auto Eosinop 2.8 % 0.1-12. complet hil Fr 013 0 ed Bld 14:06 Auto Basophi 0.6 % 0.1-2.0 complet ls Fr 013 ed Bld 14:06 Auto Granulo 2.7 1.3-8.0 complet cytes # 013 K/mm3 ed Bld 14:06 Auto Lymphoc 1.2 0.7-4.5 complet ytes Fr 013 K/mm3 ed Bld 14:06 Auto Monocyt 0.3 0.1-1.0 complet es # 013 K/mm3 ed Bld 14:06 Auto Eosinop 0.1 0.0-0.4 complet hil # 013 K/mm3 ed Bld 14:06 Auto Basophi 0.0 0-0.2 complet ls # 013 K/MM3 ed Bld 14:06 Auto Encounters Encounter Start End Date Code Location Performer Type Date Emergency BHAVNA Girard MD (ER) 4 21:44 4 00:08 [facility] Emergency BHAVNA Girard MD (ER) 3 21:27 3 01:34 [facility] Inpatient SHAHNAZ Del Toro MD (IN) 3 13:35 3 16:27 [facility]
--- OUTSIDE RECORDS SUMMARY | 2017-10-07 20:21 | External Medical Summary Rpt | CCD ---
Author Author , LUCIA MYERS Address Unknown Phone 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 Allergies, Adverse Reactions, Alerts Type Drug [...] 63 11 2 No [place] 32 -0 [place] 30 2- Lo [place] 01 20 ng [...] SI 18 -0 NO 00 2- Lo [place] 51 20 ng [place] 80 13 er -H 1 CT Ac Z ti 10 ve -1 2. 5 MG TA B [place] 11 4 No SC -0 EL 2- [...] 1 Ac TA ti BL ve ET [place] 00 11 5 No OM 64 -0 [...] 013 mcg/mL 0 ed Trough 08:45 SerPl-m [facility] COMPREHENSIVE METABOLIC PANEL (09-12-2013 06:10) Glucose 113 [...] Girard MD (ER) 4 21:44 4 00:08 [facility] Emergency BHAVNA Girard MD (ER) 3 21:27 3 01:34 [facility] Inpatient SHAHNAZ Del Toro MD (IN) 3 13:35 3 16:27 [facility]
--- OUTSIDE RECORDS SUMMARY | 2017-10-07 20:21 | External Medical Summary Rpt ---
Author Author LUCIA Villela, [employer] Address Unknown Phone Unavailable
--- OUTSIDE RECORDS SUMMARY | 2017-10-07 20:21 | External Medical Summary Rpt | CCD ---
Author Author , LUCIA Organization LUCIA Address Unknown Phone [email or web address] Immunization Name Date Rout CVX Reac Dose Comm Prov Is Faci e tion ent ider Refu lity Give sed n Tdap 08-0 115 0.5 Hist [facility] No [facility] , 6-20 mL oric 1 1 Adso 15 al rbed Info rmat ion - Sour ce Unsp ecif ied Td 03-0 9 999 Hist H149 No H149 (thomas 6-19 oric lt), 97 al Info adso rmat rbed ion - Sour ce Unsp ecif ied
--- OUTSIDE RECORDS SUMMARY | 2017-10-07 20:21 | External Medical Summary Rpt | CCD ---
Author Author , LUCIA Organization LUCIA Address Unknown Phone [email or web address] Immunization Name Date Rout CVX Reac Dose [...]
[2017-10-07 20:52] LABS: LYMPH % 24.2 % (10-50)
[2017-10-07 20:55] LABS: HEMOGLOBIN 10.1 g/dL (14.1-18.0)
[2017-10-07] MEDS ORDERED: LEVOTHYROXINE0.05 MG NG (21:01)
[2017-10-07 21:02] LABS: BUN 12 mg/dL (7-18)
[2017-10-07 21:03] LABS: GFR (ESTIMATED) 83 ML/MIN (>60)
[2017-10-07 22:00] VITALS: BP 146/78
--- NOTE | 2017-10-08 05:30 | RADIOLOGY REPORT PS360 ---
CT HEAD W/O CONTRAST HISTORY: Confusion, altered mental status, altered level of consciousness CONFUSION ORDERING PHYSICIAN: Liu Girard MD PATIENT AGE: 71 years COMPARISON: 12/10/2013 TECHNIQUE: Axial images obtained without contrast. Brain and bone windows reviewed. FINDINGS: No midline shift, mass effect, intracranial hemorrhage, hydrocephalus, or extra-axial fluid collection is evident. Involutional changes of age with brain volume loss and periventricular ischemic gliotic change. The calvarium has an unremarkable appearance. No mastoid effusion. The visualized paranasal sinuses are unremarkable. IMPRESSION: 1. No acute intracranial findings. 2. Involutional changes of age.
== END 2017-10-07 22:01 | disposition home or self-care (01) ==
LOC: ER 19:51
PROVIDERS: Emergency Medicine
DX: R20.0 Anesthesia of skin (principal); F10.920 Alcohol use, unspecified with intoxication, uncomplicated; R00.8 Other abnormalities of heart beat; I10 Essential (primary) hypertension; Y90.6 Blood alcohol level of 120-199 mg/100 ml; Z87.891 Personal history of nicotine dependence